=== PATIENT | female | born 1965 | race Caucasian/White ===

== ENCOUNTER 2017-04-07 04:15 | Emergency (ER) | payer OTHER ==
[~2017-04-07] VITALS: Ht 172.7 cm; Wt 59.0 kg
--- NOTE | 2017-04-07 04:21 | Emergency Room Report ---
History of Present Illness General Chief Complaint: Medication Refill Source: Patient Present Illness HPI Is a 51-year-old female with history of schizophrenia. She is here for refill on her medication. She says she refill and Haldol and another medicine to help with rest his leg syndrome. She doesn't know the name. She doesn't know the dosage. Patient has been out of her medication for 48 hours. Her doctors at [facility]. Denies any suicidal thought homicidal thought. Denies any other complaint. Allergies: Coded Allergies: BUPROPION (Verified Allergy, Unknown, 04/07/17) SULFA (SULFONAMIDE ANTIBIOTICS) (Verified Allergy, Unknown, 04/07/17) Patient History Past Medical History: see triage record, old chart reviewed, psych hx Past Surgical History: none Social History: Denies: smoking Last Menstrual Period: unk Now: No Immunizations: other Reviewed Nursing Documentation: PMH: Agreed, PSxH: Agreed Nursing Documentation-PMH Hx Cancer: Yes - HX OF BREAST CA,MILENA MASTECTOMY History Of Psychiatric Problem: Yes - BIPOLAR Review of Systems Eye: Denies: eye pain, blurred vision ENT: Denies: ear pain, nose congestion, throat swelling Respiratory: Denies: cough, shortness of breath Cardiovascular: Denies: chest pain, palpitations Gastrointestinal: Denies: abdominal pain, diarrhea, nausea, vomiting Musculoskeletal: Denies: back pain, joint pain Skin: Denies: rash Neurological: Denies: headache, numbness Endocrine: Denies: increased thirst, increased urine Hematologic/Lymphatic: Denies: easy bruising All Other Systems: negative except mentioned in HPI Physical Exam Vital Signs Date Time Temp Pulse Resp B/P (MAP) Pulse Ox O2 Delivery O2 Flow Rate FiO2 04/07/17 04:09 97.5 68 16 120/69 98 Room Air vitals normal Sp02 EP Interpretation: reviewed, normal General Appearance: well appearing, no apparent distress, alert Head: normocephalic, atraumatic Eyes: bilateral eye PERRL, bilateral eye EOMI ENT: hearing grossly normal, normal pharynx Neck: full range of motion, supple, no meningismus Respiratory: chest non-tender, lungs clear, normal breath sounds Cardiovascular #1: regular rate, rhythm, no murmur Gastrointestinal: normal bowel sounds, non tender, no mass, no organomegaly, no bruit, non-distended Musculoskeletal: back normal, gait/station normal, normal range of motion Psychiatric: mood/affect normal, other - Patient's wearing a blue robe and cowboy hat. She also has boxing gloves. Skin: warm/dry Medical Decision Making Diagnostic Impression: Primary Impression: Encounter for medication refill ER Course She here for medication refill. No criteria for 5150. No suicidal thought homicidal thought. Said she does not know her medication. She was at a car Dr. COBB at this hour. She is stable to wait until morning to call her doctor herself. We'll discharge home. Last Vital Signs Date Time Temp Pulse Resp B/P (MAP) Pulse Ox O2 Delivery O2 Flow Rate FiO2 04/07/17 04:09 97.5 68 16 120/69 98 Room Air Status: unchanged Disposition: HOME, SELF-CARE Condition: Stable Patient Instructions: Medicine Refill at the Emergency Department Additional Instructions: Call your DrCristopher in the morning to your medication refill. Return if symptom worsen. DAVID RENDON M.D. Apr 07, 2017 04:21
[2017-04-07 04:22] VITALS: BP 120/69
[2017-04-07 04:25] VITALS: BP 120/69
== END 2017-04-07 04:55 | disposition home or self-care (01) ==
LOC: EDBD 04:15 → EMR 04:52
DX: F20.9 Schizophrenia, unspecified (principal); Z76.0 Encounter for issue of repeat prescription; F31.9 Bipolar disorder, unspecified; G25.81 Restless legs syndrome; Z85.3 Personal history of malignant neoplasm of breast; Z90.13 Acquired absence of bilateral breasts and nipples; Z88.8 Allergy status to other drugs, medicaments and biological substances; Z88.2 Allergy status to sulfonamides
CPT/HCPCS: 99282